=== PATIENT | female | born 1995 | race Two or more races ===

== ENCOUNTER 2017-10-29 01:23 | Emergency (ER) | payer MEDICAID ==
[~2017-10-29] VITALS: Ht 162.6 cm; Wt 86.4 kg
[2017-10-29 01:36] VITALS: BP 113/56
[2017-10-29] MEDS ORDERED: HYDROcodone/acetaminophen 5mg/325mg tablet PO ONE (02:05)
[2017-10-29] MEDS ORDERED: ibuprofen tablet 400 MG TABLET PO ONE (02:05)
[2017-10-29] MEDS ORDERED: ondansetron 4mg rapidly disintigrating tab PO ONE (02:05)
[2017-10-29] MEDS ORDERED: IBUP-1986 PO (02:06)
[2017-10-29] MEDS ORDERED: HYDR-3965 PO (02:06)
== END 2017-10-29 02:26 | disposition home or self-care (01) ==
LOC: ER 01:24
DX: M25.572 Pain in left ankle and joints of left foot (principal); Z88.0 Allergy status to penicillin; Z79.899 Other long term (current) drug therapy
CPT/HCPCS: 29515; 73610; 99284

== ENCOUNTER → 2024-11-26 | Emergency (ER) | payer MEDICAID ==
[~2024-11-26] VITALS: Ht 160 cm; Wt 67.4 kg
[~2024-11-26] MED LIST: IBUP-1986 PO
[2024-11-26 15:06] VITALS: BP 115/77; PULSE 80; RESP 16; TEMP 97.1; O2SAT 100
--- NOTE | 2024-11-26 17:26 | Physician Documentation ---
History of Present Illness ~ General Chief Complaint: See Chief Complaint Stated Complaint: SWOLLEN LYMPH NODES Time Seen by MD: 17:22 History of Present Illness Initial Comments Patient is seen today with complaints of soreness in her neck and axilla and behind her knees and he feels it maybe from lymph nodes. He denies any fevers or chills or chest pain or shortness of breath or abdominal pain or nausea, vomiting, diarrhea. Patient has no other concern or complaint at this time. Medication Reconciliation Allergies: Coded Allergies: Penicillins (Verified Allergy, Unknown, 11/26/24) Scheduled Ibuprofen (Ibuprofen), 1 TAB PO Q8H Past Medical History Past Medical History: No Pertinent History Past Surgical History: noncontributory Alcohol Use: None Lives with: Family Lives In: Home Review of Systems Constitutional: Denies: chills, fever, weakness Eyes: Denies: pain, blurred vision ENT: Denies: ear pain, nose pain, throat pain, mouth pain Respiratory: Denies: cough, shortness of breath Cardiovascular: Denies: chest pain, palpitations Gastrointestinal: Denies: abdominal pain, nausea, vomiting Genitourinary: Denies: burning, dysuria Female Genitalia: Denies: vaginal discharge, pelvic pain Neurological: Denies: headache, dizziness Musculoskeletal: Denies: pain, swelling Integumentary: Denies: rash, lesions Allergic/Immunologic: Denies: hives, itching Hematologic/Lymphatic: Denies: no symptoms reported Psychiatric: Denies: depression, anxiety Physical Exam Physical Exam Vital Signs: Temperature: 97.1, Source: Temporal, Heart Rate: 80, Respiratory Rate: 16, BP: 115/77, Pulse Oximetry: 100, Weight: 67.400 Oxygen Flow Rate: 0 Physical Exam General: Awake and Alert, no acute distress. HEENT: On exam I do not appreciate any significant lymphadenopathy of the neck or anterior cervical area. Conjunctiva pink, Sclera clear, Mucus Membranes moist. Neck: Supple without masses and tenderness. Resp: Unlabored. Lungs clear to auscultation bilaterally. Heart: Regular Rate and rhythm, normal S1 and S2 without murmur, rub or gallop. Extremities: No cyanosis,clubbing or edema. I do not appreciate any swelling of the axilla or popliteal surface behind the knees. Patient is neurovascularly intact distally of bilateral upper and lower extremities. Motor function intact distally. Skin: Warm and Dry. Progress Results/Orders Results/Orders Vital Signs 11/26/24 15:06 Temp 97.1 Pulse 80 Resp 16 B/P (MAP) 115/77 Pulse Ox 100 O2 Flow Rate 0 Medical Decision Making Additional information obtaine: N/A Findings Patient is seen today with complaints of soreness in her neck and axilla and behind her knees and he feels it maybe from lymph nodes. He denies any fevers or chills or chest pain or shortness of breath or abdominal pain or nausea, vomiting, diarrhea. Patient has no other concern or complaint at this time. Patient eloped prior to further exam or testing being performed. Patient will return to ED with any worsening, concerning or changing symptoms. Differential Diagnosis Lymphadenopathy, contusion, lupus, viral illness Departure Disposition: LEFT AWOL/ELOPED Impression: Primary Impression: Lymphadenopathy Condition: Stable Additional Instructions: Patient eloped prior to further exam or testing being performed. Patient will return to ED with any worsening, concerning or changing symptoms. Referrals: NO PRIMARY CARE PROVIDER (PCP) Signature Scribe Signature: No scribe Attestation: No scribe PANCHITO CELESTE PAC Nov 26, 2024 17:26
== END | disposition home or self-care (01) ==
LOC: ER 14:55
DX: R59.0 Localized enlarged lymph nodes (principal); Z88.0 Allergy status to penicillin; Z79.899 Other long term (current) drug therapy
CPT/HCPCS: 99282